=== PATIENT | female | born 1950 | race African-American/Black ===

== ENCOUNTER 2018-07-31 07:31 | Emergency (ER) | payer OTHER ==
[~2018-07-31] VITALS: Ht 162.6 cm; Wt 77.0 kg
[2018-07-31 08:15] LABS: URINE BILIRUBIN - DIPSTICK NEGATIVE (NEGATIVE); URINE BLOOD DIPSTICK LARGE (NEGATIVE); URINE COLOR RED; URINE GLUCOSE - DIPSTICK 100 mg/dL (NEGATIVE); URINE KETONE TRACE mg/dL (NEGATIVE); URINE PH 5.5 (4.5-8.0); URINE PROTEIN - DIPSTICK 100 mg/dL (NEG-TRACE); URINE SPECIFIC GRAVITY 1.025; URINE UROBILINOGEN - DIPSTICK 0.2 E.U./dL (0.2)
[2018-07-31 08:16] LABS: URINE LEUK ESTERASE MODERATE (NEGATIVE); URINE NITRITE - DIPSTICK POSITIVE (Negative)
[2018-07-31] MEDS ORDERED: IBUPROFEN600 MG PO (08:16)
[2018-07-31] MEDS ORDERED: GLIPIZIDE5 MG PO (08:18)
[2018-07-31] MEDS ORDERED: ATORVASTATIN CA20 MG PO (08:19)
[2018-07-31 08:20] LABS: URINE WBC >100 WBC/hpf (0-5)
[2018-07-31 08:21] LABS: URINE RBC >100 RBC/hpf (0-5)
[2018-07-31] MEDS ORDERED: GABAPENTIN100 MG PO (08:21)
[2018-07-31 08:22] LABS: URINE BACTERIA FEW hpf
[2018-07-31] MEDS ORDERED: LISINOPRIL10 MG PO (08:22)
[2018-07-31] MEDS ORDERED: CEPHALEXIN500 M1 PO (08:27)
[2018-07-31 08:28] VITALS: BP 169/112
== END 2018-07-31 08:44 | disposition home or self-care (01) ==
LOC: ED 07:31
PROVIDERS: Family Medicine
DX: N39.0 Urinary tract infection, site not specified (principal); R30.0 Dysuria; B96.4 Proteus (mirabilis) (morganii) as the cause of diseases classified elsewhere